=== PATIENT | male | born 1995 | race Caucasian/White ===

== ENCOUNTER 2020-10-19 15:58 | Emergency (ER) | payer OTHER ==
[2020-10-19] MEDS ORDERED: Bacitracin Oint 1 GM U/D Packet TOP ONE (16:13)
[2020-10-19] MEDS ORDERED: Lidocaine 1% PF 2 ML SDV INJECT ONE (16:13)
[2020-10-19] MEDS ORDERED: Diphtheria,Pertussis(Acell),Tetanus Vaccine 0.5 ML Syringe IM ONE (16:13)
--- NOTE | 2020-10-19 16:29 | EDM.PDOC ---
ED HPI GENERAL MEDICAL PROBLEM - General Chief Complaint: Laceration Stated Complaint: LACERATION TO MIDDLE FINGER Time Seen by Provider: 10/19/20 16:00 Source of Information: Reports: Patient History Limitations: Reports: No Limitations - History of Present Illness INITIAL COMMENTS - FREE TEXT/NARRATIVE: HISTORY AND PHYSICAL: History of present illness: Patient is a 25-year-old male who presents to the emergency room with complaints of a laceration/avulsion to the distal tip of his left third digit. While at work he was using a machine that had a chain apparatus and his finger got caught. When he pulled his finger away there is an avulsion of skin to the distal tip, this does not affect the nailbed. He denies any other extremity involvement. He offers no systemic complaints. Unsure of his last tetanus update. Review of systems: As per history of present illness and below otherwise all systems reviewed and negative. Past medical history: As per history of present illness and as reviewed below otherwise noncontributory. Surgical history: As per history of present illness and as reviewed below otherwise noncontributory. Social history: See social history for further information Family history: As per history of present illness and as reviewed below otherwise noncontributory. Physical exam: General: Well developed and well nourished. Alert and orientated x 3. Nontoxic in appearance and in no acute distress. Vital signs are stable and have been reviewed by me. Nursing notes were reviewed. HEENT: Atraumatic, normocephalic, pupils equal and reactive bilaterally, negative for conjunctival pallor or scleral icterus, mucous membranes moist, TMs normal bilaterally, throat clear, neck supple, nontender, trachea midline. No drooling or trismus noted. No meningeal signs. No hot potato voice noted. Lungs: Clear to auscultation bilaterally. No wheezes, rales, or rhonchi. Chest nontender. Normal work of breathing, no accessory muscles used. Heart: S1S2, regular rate and rhythm without overt murmur, gallops, or rubs. No JVD. No peripheral edema Abdomen: Soft, nondistended, nontender. Normoactive bowel sounds. Negative for masses or costovertebral tenderness. Pelvis: Stable nontender. Genitourinary/Rectal: Deferred. Skin: 1 cm x 2 cm irregular skin avulsion to distal tip of left 3rd digit, not involving the nail bed. Remaining skin is intact, warm, dry. No lesions or rashes noted. Hematologic: No petechiae or purpra. Mucosa appropriate color and normal nail bed color and refill. Extremities: Atraumatic, moves all extremities per self without difficulty or deficits, negative for cords or calf pain. Neurovascular unremarkable. Neuro: Awake, alert, oriented. Cranial nerves II through XII unremarkable. Cerebellum unremarkable. Motor and sensory unremarkable throughout. Exam nonfocal. Psychiatric: Mood and affect are appropriate. Normal thought process. Answering questions appropriately. Notes: *This patient was seen and evaluated during the 2019 SARS-CoV-2 novel coronavirus pandemic period. Community viral transmission is ongoing at time of this encounter and the emergency department is operating under pandemic response procedures. X-ray findings consistent with laceration of the distal 3rd finger without acute fracture, dislocation or radiopaque foreign body. 1% lidocaine was used for a digital block. Wound wash and chlorhexidine was used to cleanse the site. The skin is avulsed and there is no area that is able to be sutured closed. A Vaseline nonstick dressing applied. X-ray shows no fractures. I have talked with the patient about today's findings, in addition to providing specific details for plan of care. Reassessment at the time of disposition demonstrates that the patient is in no acute distress. The patient is stable for discharge, counseling was provided and we discussed in great detail signs and symptoms that would prompt them to return to the Emergency Department. Medication, follow up and supportive care measures were reviewed and discussed. Voices understanding and is agreeable to plan of care. Denies any further questions or concerns at this time. Diagnostics: Finger x-ray Therapeutics: Tdap, Lidocaine, Bacitracin Prescription: [place] (#10) Impression: Crush injury Skin avulsion Plan: 1. The skin was not suitable for sutures. Keep the area clean and dry. Gently wash the area twice daily with mild soap and water. Continue to monitor for signs of infection. When there is a possibility of the skin being soiled please keep the site covered until you have completely healed. 2. Tylenol and/or ibuprofen as needed for pain management. A limited amount of [place] has been provided for you for moderate to severe pain. This medication may cause drowsiness so do not take it while driving or needing to be functioning outside of the house. 3. Please follow-up with your primary care provider in the next 1-2 days. Return to the ED as needed and as discussed. Definitive disposition and diagnosis as appropriate pending reevaluation and review of above. Left Finger-Middle Pain Score (Numeric/FACES): 5 - Related Data Allergies Allergy/AdvReac Type Severity Reaction Status Date / Time No Known Allergies Allergy Verified 10/19/20 16:08 Home Meds: Home Meds . [No Known Home Meds] 10/19/20 [History] ED ROS GENERAL - Review of Systems Review Of Systems: Comprehensive ROS is negative, except as noted in HPI. ED EXAM, SKIN/RASH Exam: See Below (See dictation) ED SKIN PROCEDURES - Laceration/Wound Repair Left 3rd finger Appearance: Subcutaneous, Irregular, Mildly Contaminated Distal NVT: Neuro & Vascular Intact, No Tendon Injury Anesthetic Type: Digital Local Anesthesia - Lidocaine (Xylocaine): 1% Plain Local Anesthetic Volume: Other (6) Saline Irrigation (cc's): 500 Exploration/Debridement/Repair: Wound Explored, In a Bloodless Field, Explored to Base, No Foreign Material Found Closed with: Other (Nonsuturable) Lac/Wound length In cm: 3 Tetanus Status Addressed: Yes Complications: No Course - Vital Signs Last Recorded V/S: Last Vital Signs Temp 98 F 10/19/20 16:08 Pulse 88 10/19/20 16:08 Resp 18 10/19/20 16:08 BP 119/79 10/19/20 16:08 Pulse Ox 99 10/19/20 16:08 - Orders/Labs/Meds Orders: Active Orders 24 hr Category Date Time Status Vaccines to be Administered [RC] PER UNIT ROUTINE Care 10/19/20 16:14 Active Fingers Third Digit Lt F2 [CR] Stat Exams 10/19/20 16:13 Taken Meds: Medications Discontinued Medications Generic Name Dose Route Start Last Admin Trade Name Freq PRN Reason Stop Dose Admin Bacitracin 1 dose 10/19/20 16:13 10/19/20 16:40 Bacitracin Oint 1 Gm TOP 10/19/20 16:14 1 dose ONETIME ONE Administration Diphtheria/Tetanus/Acell Pertussis 0.5 ml 10/19/20 16:13 10/19/20 16:40 Boostrix IM 10/19/20 16:14 0.5 ml .ONCE ONE Administration Lidocaine HCl 6 ml 10/19/20 16:13 10/19/20 16:35 Xylocaine-Mpf 1% INJECT 10/19/20 16:14 6 ml ONETIME ONE Administration Departure - Departure Time of Disposition: 16:37 Disposition: Home, Self-Care 01 Clinical Impression: Crush injury to finger Qualifiers: Encounter type: initial encounter Qualified Code(s): S67.10XA - Crushing injury of unspecified finger(s), initial encounter Avulsion of skin of finger Qualifiers: Encounter type: initial encounter Qualified Code(s): S61.209A - Unspecified open wound of unspecified finger without damage to nail, initial encounter - Discharge Information Referrals: PCP,None [Primary Care Provider] - Forms: ED Department Discharge Additional Instructions: The following information is given to patients seen in the emergency department who are being discharged to home. This information is to outline your options for follow-up care. We provide all patients seen in our emergency department with a follow-up referral. The need for follow-up, as well as the timing and circumstances, are variable depending upon the specifics of your emergency department visit. If you don't have a primary care physician on staff, we will provide you with a referral. We always advise you to contact your personal physician following an emergency department visit to inform them of the circumstance of the visit and for follow-up with them and/or the need for any referrals to a consulting specialist. The emergency department will also refer you to a specialist when appropriate. This referral assures that you have the opportunity for follow-up care with a specialist. All of these measure are taken in an effort to provide you with optimal care, which includes your follow-up. Under all circumstances we always encourage you to contact your private physician who remains a resource for coordinating your care. When calling for follow-up care, please make the office aware that this follow-up is from your recent emergency room visit. If for any reason you are refused follow-up, please contact the [facility] Emergency Department at and asked to speak to the emergency department charge nurse. [facility] [address] [place] [id number] [facility] [address] [place] [address] Thank you for choosing the [facility] emergency department in [place] for your medical needs today. It was a pleasure caring for you. Today you were seen in the emergency department for skin avulsion and crush injury. 1. The skin was not suitable for sutures. Keep the area clean and dry. Gently wash the area twice daily with mild soap and water. Continue to monitor for signs of infection. When there is a possibility of the skin being soiled please keep the site covered until you have completely healed. 2. Tylenol and/or ibuprofen as needed for pain management. A limited amount of [place] has been provided for you for moderate to severe pain. This medication may cause drowsiness so do not take it while driving or needing to be functioning outside of the house. 3. Please follow-up with your primary care provider in the next 1-2 days. Return to the ED as needed and as discussed. Sepsis Event Note (ED) - Evaluation Sepsis Screening Result: No Definite Risk - Focused Exam Vital Signs: Vital Signs Temp Pulse Resp BP Pulse Ox 10/19/20 16:08 98 F 88 18 119/79 99 - My Orders Last 24 Hours: My Active Orders 10/19/20 16:13 Fingers Third Digit Lt F2 [CR] Stat 10/19/20 16:14 Vaccines to be Administered [RC] PER UNIT ROUTINE - Assessment/Plan Last 24 Hours: My Active Orders 10/19/20 16:13 Fingers Third Digit Lt F2 [CR] Stat 10/19/20 16:14 Vaccines to be Administered [RC] PER UNIT ROUTINE
--- NOTE | 2020-10-19 17:05 | CR ---
INDICATION: Crush injury TECHNIQUE: X-ray left 3rd digit, three views COMPARISON: None available FINDINGS: There is a soft tissue defect over the distal ventral aspect of the 3rd finger. No underlying fracture is visualized. The alignment is normal. No radiopaque foreign body is seen. IMPRESSION: Findings consistent with laceration of the distal 3rd finger without acute fracture, dislocation or radiopaque foreign body. Dictated by Diane Valentino MD @ Oct 19 2020 4:56PM Signed by Dr. Diane Valentino @ Oct 19 2020 5:03PM
== END 2020-10-19 17:23 | disposition home or self-care (01) ==
LOC: MW.ED 15:58
DX: S67.193A Crushing injury of left middle finger, initial encounter (principal); S61.213A Laceration without foreign body of left middle finger without damage to nail, initial encounter; Z23 Encounter for immunization; W23.0XXA Caught, crushed, jammed, or pinched between moving objects, initial encounter; Y92.89 Other specified places as the place of occurrence of the external cause; Y99.0 Civilian activity done for income or pay
CPT/HCPCS: 64450; 73140; 90471; 99283; J2001